=== PATIENT | female | born 1950 | race Caucasian/White ===

== ENCOUNTER → 2017-03-08 | Outpatient (CLI) | payer OTHER ==
[~2017-03-08] VITALS: Ht 157.5 cm; Wt 86.2 kg
[~2017-03-08] MED LIST: AMLODIPINE BESY10 MG PO; ASPIR 8181 MG PO; CALCITONIN-SAL3.7 ML NASAL; CALCIUM 600 +1 EAC1 PO; ESCITALOPRAM OX20 MG PO; HYDROCHLOROTHIA25 M2 PO; LIPITOR 20 MG T20 M1 PO; LOPRESSOR50 PO; RALOXIFENE HCL60 MG PO; VITAMIN D-32000 UNIT PO
--- NOTE | ~2017-03-08 | S ---
[facility] [place] [address] SURGICAL PATH RPT PROCEDURE Name: NAFISA EVANS Room #: REG RACHEL LuciaIsiAlysha.#: [id number] Admission: 03/08/17 Date of : 48 Discharge: Report #: [id number] Path Case #: [id number] PATHOLOGY REPORT COLLECTION DATE: 03/08/2017 RECEIVED DATE: 03/09/2017 SUBMITTING PHYS: Dr. Alec Madden OTHER PHYS: Dr. Chauncey Curry SPECIMEN(S) RECEIVED: A.Biopsy descending colon polyp B.Sigmoid colon polypectomy C.Biopsy rectal polyp x2 * * * * * * * * * * * * FINAL DIAGNOSIS: A. Polyp, descending colon polyp, endoscopic biopsy: - Hyperplastic polyp. - Negative for dysplasia. B. Polyp, sigmoid colon polyp x2, polypectomy: - All fragments showing hyperplastic polyps. - Negative for dysplasia. C. Polyp, rectal polyp x2, endoscopic biopsy: - All fragments showing hyperplastic polyp. - Negative for dysplasia. (IUV:mml; 03/10/2017) PATHOLOGIST: Janiya Cash M.D. REPORT ELECTRONICALLY SIGNED BY: Janiya Cash M.D. DATE/TIME: 03/10/2017 13:44 * * * * * * * * * * * * GROSS PATHOLOGY: A. The specimen is received in formalin, labeled "Nafisa Evans, descending colon polyp," and consists of 3 fragments of olivarez soft tissue measuring between 0.3 x 0.3 x 0.2 cm and 0.2 x 0.1 x 0.1 cm. They are entirely submitted in cassette A1. B. The specimen is received in formalin, labeled "Nafisa Evans, sigmoid colon polypectomy X2," and consists of 2 fragments of olivarez soft tissue measuring 0.6 x 0.5 x 0.3 cm and 0.5 x 0.4 x 0.2 cm. They are inked and entirely submitted in cassette B1. C. Received in formalin labeled "Nafisa Evans, biopsy rectal polyp X2," are 5 segments of olivarez soft tissue measuring 0.8 x 0.5 x 0.2 cm in aggregate dimensions. The specimen is submitted entirely in cassette C1. (SDY; 03/09/2017) [address] [address] SURGICAL PATH RPT PROCEDURE Name: NAFISA EVANS Room #: REG [facility].#: [id number] Admission: 03/08/17 Date of : 48 Discharge: Report #: [id number] Path Case #: [id number] CLINICAL HISTORY: History colon polyps Colon polyps INITIAL CPT CODE(S): A; 36143 B; 28393 C; 71508 Professional services performed by [facility] at [address] , [place] [address] Technical services performed by [facility] at [address] [place] [address], [address], [place] [address]. [facility] [address] [place] [address] PHONE: [phone] DIRECTOR: Sebastián Reynoso M.D. * * * END OF REPORT * * *
--- NOTE | ~2017-03-08 | P ---
[facility] [place] [address] PROCEDURE REPORT Name: DOUGLASKATELYNN Room #: REG [facility] Isabel#: [id number] Admission: 03/08/17 Attend Phys: Alec Brar Discharge: Date of : 48 Report #: [id number] THIS REPORT FOR: //name// CC: Alec Corbett DATE OF SERVICE: 03/08/2017 PROCEDURE PERFORMED: Colonoscopy with polypectomies. HISTORY OF PRESENT ILLNESS: The patient is a 66-year-old female with a history of colon polyps, moderate size polyp was removed 3 years ago on the ileocecal valve. She denies any symptoms. No family history of colon cancer. DESCRIPTION OF PROCEDURE: The risks and benefits of the procedure were explained to the patient, those risks including but not limited to bleeding, perforation, the risk of sedation. She understood these risks and gave informed consent. Sedation was given using propofol per anesthesia. Next, a digital rectal exam was initially performed, which was normal. Next, using a standard Fujinon colonoscope, the scope was placed in the patient's anus and advanced under direct vision to the cecum. The overall prep was excellent. The cecum and ileocecal valve were normal in appearance. The previous polypectomy site on the ileocecal valve was well healed. There was no evidence of any residual polyp. Ascending and transverse colon were normal. In the descending colon, a 5 mm sessile polyp was noted. This was removed with cold forceps, otherwise normal. In the sigmoid colon, a 6 mm sessile polyp was noted. This was removed by snare cautery, otherwise normal. In the rectum, two 3-4 mm sessile polyps, both removed by cold forceps. On retroflexion, no abnormalities were noted. The scope was then withdrawn and the procedure terminated. The patient tolerated the procedure well. IMPRESSION: 1. Four colonic polyps. 2. Otherwise, normal colonoscopy. RECOMMENDATIONS: 1. Await biopsy results. 2. Repeat colonoscopy in 5 years. Thank you for allowing me to participate in her care. <ELECTRONICALLY SIGNED> By: Alec Madden MD 03/11/17 [id number] Alec Madden MD /nt
== END | disposition home or self-care (01) ==
LOC: GI 09:27
DX: Z09 Encounter for follow-up examination after completed treatment for conditions other than malignant neoplasm (principal); K63.5 Polyp of colon; I10 Essential (primary) hypertension; E78.5 Hyperlipidemia, unspecified; F32.89 Other specified depressive episodes; F41.8 Other specified anxiety disorders; F17.210 Nicotine dependence, cigarettes, uncomplicated; Z79.82 Long term (current) use of aspirin; Z90.710 Acquired absence of both cervix and uterus; Z98.890 Other specified postprocedural states; Z86.010 Personal history of colon polyps; Z79.899 Other long term (current) drug therapy
CPT/HCPCS: 62110; 62900